=== PATIENT | female | born 1985 | race Caucasian/White ===

== ENCOUNTER 2018-12-08 11:06 | Outpatient (RCR) | payer MEDICAID, SELFPAY ==
--- NOTE | 2018-12-10 10:48 | HP.OTFCE_ITS ---
HP OT Functional Capacity Eval - Task Lift Floor (Occasional 1-33% of Day): 30 Floor (Frequent 34-66% of Day): 15 Floor (Constant 67-100% of Day): Negligible Floor PDL: Light Knee (Occasional 1-33% of Day): 35 Knee (Frequent 34-66% of Day): 18 Knee (Constant 67-100% of Day): 7 Knee PDL: Light-Medium Waist (Occasional 1-33% of Day): 35 Waist (Frequent 34-66% of Day): 18 Waist (Constant 67-100% of Day): 7 Waist PDL: Light-Medium Shoulder (Occasional 1-33% of Day): 30 Shoulder (Frequent 34-66% of Day): 15 Shoulder (Constant 67-100% of Day): negligible Shoulder PDL: Light Overhead (Occasional 1-33% of Day): 30 Overhead (Frequent 34-66% of Day): 15 Overhead (Constant 67-100% of Day): Negligible Overhead PDL: Light Comments: Job Title: Per pt; NURSE RN BSN/Chemical Maker/Laundry: clean, light trash, assist pt with basic self care, transfer pt's, assist with delivering meals, push wheelchairs, push laundry cars, push housekeeping cart, clean 20-30 rooms a day, wash bruce, sweep, mop, clean toilets and mirrors. milling general superintendent trash carry to dumpster. Since pt has been completing light duty only laundry tasks which includes; cook pickled meat laundry barrels, put in washer, dryer and fold. Help hang up clothes, but pt states only one item at a time due to her pain in R side of body. - Work Activity/Posture Bending: Frequent Ability (34-66% of day) Squatting: Frequent Ability (34-66% of day) Kneeling: Occasional Ability (1-33% of day) Reaching out: Frequent Ability (34-66% of day) Reaching up: Frequent Ability (34-66% of day) Sitting: Frequent Ability (34-66% of day) Walking: Frequent Ability (34-66% of day) Standing: Frequent Ability (34-66% of day) - Reference Duration Sedentary Sedentary Light Light Light Medium Medium Medium Heavy Very Heavy Heavy Occasional (0-33% of day) Frequent (34-66% of day) Constant (67-100% of day) 10 # Negligible Negligible 15 # 8 # Negligible 20 # 10# Negli. 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 - Symptoms Symptoms: Pt reports; very sensitive to touch R arm, burning pain R arm from her hand to middle of humerous, R leg hurts to touch, but not as sensitive as R arm, stabbing pain thigh to knee, R foot burning pain. - Pain Pain: Pt states at rest R arm pain 5/10, R leg pain 3/10, R foot pain 5/10 if moves toes a lot goes up to 6/10 pain. Increased pain with all movements or touching of R UE/R LE. - Work History Work History: Pt reports has worked at [employer] for past year. 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 - ADLS ADLS: Pt is a single mother lives with her 4 children to care for, all school aged. Lives in mobile home, ramp to enter no handrails. Bathroom includes tub/shower 2 grab bars, std toilet seat. Drives, works typically 5-6 hrs a week occassionally 8 hrs. Pt states she is extremally fatigued if she has to work a long day. Pt independent with cooking tasks, does grocery shopping but kids carry groceries in house for her. Pt does laundry in house, kids assist with transfering laundry from washer/dryer, she folds and kids carry it and put away. Pt states she cleans the house. Cat to care for at home, pt states cat is indoor/outdoor cat. Sons complete yard work. - Physical Examination ROM: BUE WFL, BLE WFL Strength: R UE 3/5, very painful to touch for MMT therapist had to inform pt she was going to touch her arm so she could mentally prepare for it. L UE 4/5. R LE 4/5. L LE 4+/5 Right Cover Stitch Machine Operator Strength Average: 51.66 Left Cover Stitch Machine Operator Strength Average: 80.00 Right Lateral Pinch Average: 11.00 Left Lateral Pinch Average: 11.66 Right Tripod Pinch Average: 10.00 Left Tripod Pinch Average: 12.00 Comments: Pt demo increased pain of R hand with completion of pinching and grasping tests. Sensation: Pt states occassional numbness and tingling R elbow and shoulder, R calf. No present at time of evaluation. Fine Motor: Pt states she can independently complete fine motor tasks but very painful to complete fine motor skills with R hand. 9 hole peg test. R= 22.7 seconds. L= 20.1 seconds Balance: Pt states she has had falls in past three months, has had 3 falls while at work, 2 times pushing laundry cart when legs gave out and one time she didn't see the stool and fell over it while doing laundry. Pt stated occassionally her legs will just give out on her. - Non Material Handling Activities Bendinx, 10x, 10x fast unsupported Squattinx, 10x, 10x fast using L hand on desk for support inconsistantly during squatting. Kneelinx, 10x able to go down about 1 inch from carpet, unable to touch knee on carpet all the way, 10x fast (modified kneeling not able to go all the way down) using L hand on desk for support, losing balance once able to self correct. Reaching out/up: 1x, 10x, 10x fast all while standing for reaching out to left and right, as well as up. Pt reported 7/10 pain with R hand after movements. Walking: Completed 15 minute walk test w/o seated rest break needed. Standing: Pt able to stand during the evaluation between tasks without difficulty or need to sit down. No s/s of pain with standing. Between lifting tasks pt preferred to stand secondary to pain and nauseated. Sitting: Pt able to sit w/o s/s of pain or discomfort. Pt able to sit for first 20 minutes of evaluation without difficulty or s/s of discomfort. Climbing Stairs: Climbed flight of steps up/down 10 steps using L hand on handrail for support. - Dynamic Occasional Lifting Capacity Floor Lift: 30lb max with 8/10 pain R arm standing/slowly walking around therapist desk due to increased pain R arm shooting up to neck. Knee Lift: 35lb max with 8/10 pain shooting from R hand up to neck and pt stated burning feeling R hand/arm after done with lift. Waist Lift: 35lb max Shoulder Lift: 30lb max 8/10 pain R arm to neck shooting, burning, pt walking around therapists desk after lift trying not to vomit. Pt nauseated from pain. Overhead Lift: 30lb max 8/10 pain R arm to neck, nauseated from pain. Carryinlb max only using L hand to finish carrying box last few inches to chair and used body and L hand only to sit box down secondary to pain R arm 8/10, after finsihed pt stated felt like needed to vomit, walking around room shaking R arm secondary to pain. Comments: Pt states okay to complete one lift, if had to complete repetitive lifting would probably vomit because of the pain. Pt declined to try several lifts in row to simulate laundry tasks for work because of pain and nauseated. Pt gets frustrated because she tries to complete all tasks and has a difficult time completing variety of tasks because of the pain.
== END 2018-12-08 19:00 | disposition home or self-care (01) ==
LOC: OT 11:06
PROVIDERS: Family Provider Family Medicine; PCP Family Medicine; Referring Provider Family Medicine; Visit Provider Family Medicine
DX: I69.30 Unspecified sequelae of cerebral infarction (principal); M79.601 Pain in right arm
CPT/HCPCS: 97165; 97167

== ENCOUNTER 2019-12-25 13:33 | Inpatient (IN) | payer MEDICAID, SELFPAY ==
[2019-12-25] VITALS (14 sets, daily range): BP systolic 118–140; BP diastolic 59–94; PULSE 60–110; RESP 13–20; TEMP 36.6–36.9; O2SAT 97–100; BMI 36.6; BMI 36.2; BMI 36.3
--- NOTE | 2019-12-25 13:40 | ED.RN ---
Per dr. barnes, do not need to call stroke alert.
--- NOTE | 2019-12-25 13:47 | ED.RN ---
rt sided facial droop and numbness from previous stroke.
--- NOTE | 2019-12-25 13:53 | EKG12_ITS ---
Test Reason : NEURO Blood Pressure : / mmHG Vent. Rate : 085 BPM Atrial Rate : 085 BPM P-R Int : 148 ms QRS Dur : 082 ms QT Int : 372 ms P-R-T Axes : 052 -19 060 degrees QTc Int : 442 ms Normal sinus rhythm Normal ECG Confirmed by BRIGIDO GORDON, ALEM ([id number]), city editor MIKY ZHANG ([id number] on 12/28/2019 1:53:36 PM Referred By: YANICK Confirmed By:ALEM FOFANA MD
--- NOTE | 2019-12-25 13:54 | CT_ITS ---
STUDY: CT BRAIN WITHOUT CONTRAST REASON FOR EXAM: Female, 34 years old. Altered mental status. History of stroke. RADIATION DOSAGE (If Supplied By Facility): CTDIvol = ( 44.99 ) mGy, DLP = ( 812.98 ) mGycm TECHNIQUE: Transaxial CT imaging of the brain was performed without administration of intravenous contrast material. Individualized dose optimization techniques were used for this CT. COMPARISON: 01/23/2017 FINDINGS: There is an old left MCA territory infarct with encephalomalacia. There is no acute bleed or infarct. There are normal white matter tracts. The ventricles are normal in configuration. There is no hydrocephalus. There is mucosal hypertrophy in the left maxillary sinus. The visualized paranasal sinuses are otherwise clear. The mastoid air cells are well aerated. There is no skull fracture. CT/Brain/Head without Contrast IMPRESSION: Old left MCA territory infarct with encephalomalacia. No acute bleed or infarct. Left maxillary sinusitis. Electronically Signed: Mohsen Martin, at 14:29 EDT Tel , Service support ,
[2019-12-25 14:07] LABS: Absolute Lymphocyte Count 2.36 X10^3/uL (0.83-4.51); Absolute Neutrophil Count 7.6 X10^3/uL (2.0-7.7); Basophil# 0.07 X10^3/uL; Basophil% 0.6 % (0-1); Eosinophil# 0.25 X10^3/uL; Eosinophils% 2.3 % (0-5); Hematocrit 44.2 % (37-47); Hemoglobin 14.8 g/dL (12.0-15.0); Lymphocyte # 2.36 X10^3/ul (4.0); Lymphocyte % 21.6 % (19-41); Mean Corp Hgb Conc 33.5 g/dL (32-36); Mean Corpuscular Volume 98.4 fL (81-99); Mean Platelet Vol. 8.9 fl (6.2-12.0); Monocyte# 0.55 X10^3/uL; NRBC Flagged by Analyzer 0 % (0-5); Neutrophil # 7.63 X10^3/uL (2.7-7.7); Platelet Count 246 K/mm3 (150-450); RBC Distribution Width CV 12.7 % (11.6-14.6); RBC Distribution Width SD 45.1 fl (35.1-43.9); Red Blood Count 4.49 M/mm3 (4.2-5.4); White Blood Count 10.9 K/mm3 (4.4-11.0)
[2019-12-25 14:12] LABS: Prothrombin Time (Protime)PT. 12.9 SECONDS (11.7-14.9)
[2019-12-25 14:13] LABS: Partial Thromboplast Time 26.5 Seconds (24.1-36.2)
[2019-12-25 14:30] LABS: Anion Gap 4 (5-15); BUN 13 mg/dL (7-18); BUN/Creat Ratio 13.5 RATIO (10-20); Calcium,Total 8.7 mg/dL (8.5-10.1); Chloride 110 mmol/L (98-107); Creatinine, Serum 0.96 mg/dL (0.55-1.02); EST Glomerular Filtration Rate 70 mL/min (>60); Est Glom Filt Rate - Afr Amer 84 mL/min (>60); Estimated Creatinine Clearance 84.67 ml/min; Glucose 116 mg/dL (74-106); Potassium 3.7 mmol/L (3.5-5.1); Sodium Level 140 mmol/L (136-145)
[2019-12-25] MEDS: 0.9% Normal Saline 1,000 ML 100 ML IV ×2 (14:32→18:53)
[2019-12-25 15:16] LABS: Internal QC Validated? YES +Cl - CLEAR BKGD; Pregnancy, Serum, hCG Quali. NEGATIVE Negative
--- NOTE | 2019-12-25 16:46 | ED.VISSUMM ---
- ER Visit Summary Date of Service: 12/25/19 Chief Complaint: Slurred speech History of Present Illness: The patient is a [address] Mcnair. She has a history of a stroke and saw Dr. Kim Dangelo until he moved to a different hospital. She reports that she was fine when she went to bed last night. She woke up at 1030 and had not spoken with anyone until noon. When she spoke with her she found that she had slurred speech. She denies any change in her vision. No vertigo. No numbness or weakness. No difficulty walking. She does report that she is nauseated. Physical Examination: Vitals: Stable. Afebrile. General: Well-nourished and well-developed. Head: Normocephalic atraumatic. Neck: Supple, no lymphadenopathy. No JVD. Nontender. Cardiovascular: Regular rate and rhythm. No murmurs. Respiratory: No respiratory distress. Clear to auscultation bilaterally. Abdominal: Soft, nontender, nondistended, normal bowel sounds. No guarding, rebound, or peritoneal signs. Back: Nontender. Extremities: Nontender, no edema. Skin: Normal color, no rash. Neurologic: Alert and oriented ?3. Cranial nerves II through XII are intact. Normal strength and sensation. NIH scale is 1 for slurred speech. Psych: Normal affect. Test Results: EKG is sinus at 85 no acute changes. Troponin is negative. test is negative. Coags are normal. Chem-7 is remarkable for a chloride of 110 and glucose 116. CBC is normal. Clinical Impression(s) from Imaging Studies Brain CT 12/25/19 13:54 IMPRESSION: Old left MCA territory infarct with encephalomalacia. No acute bleed or infarct. Left maxillary sinusitis. Electronically Signed: Mohsen Wynneelizabethjeanmarie, at 14:29 EDT Tel , Service support , Emergency Department Course and Treatment: Patient woke with the symptoms. We do not know the timeframe. Therefore, she is not a TPA candidate. She is unable to have a CTA to rule out a large vessel occlusion as she has anaphylaxis to iodine. She is resting comfortably. Treatment Plan: Patient was discussed Dr. Sevilla. She will be admitted to the hospital for further evaluation and treatment. Disposition: Admitted in stable condition. Impression: 1. Slurred speech. 2. History of CVA. This note was generated with Mindbl[employer] dictation software. It may contain incorrect words, spelling, and punctuation that were not noted in review of the chart prior to signing
--- NOTE | 2019-12-25 17:20 | PCM.HP.STD ---
<Renard Pride - Last Filed: 12/25/19 17:20> Problem List (1) Expressive aphasia Status: Acute (2) Asthma Status: Chronic (3) Bipolar disorder Status: Chronic (4) History of pulmonary embolism Status: Chronic (5) Tobacco dependence Status: Chronic History of Present Illness Date of Admission: 12/25/19 Chief Complaint: aphasia The patient is a 34 year old F with pmhx of stroke with chronic right sided upper and lower extremity sensory deficits, bipolar discorder, hx PE, tobacco abuse, who presented to the ER with c/o slurred speech. She woke up around 1000 and felt fine, she spoke to someone on the phone around noon and states that her speech was ok then as well. Soon after this she spoke to her and he noticed the slurred speech. She was also having trouble with word finding. She also is having trouble with salivary secretions draining down her throat and making her cough. She has not been taking her aspirin 4 days stating the reason was that she could not find it. She formerly was a patient of Dr. Jane. [] Past Medical History Past Medical History (Chronic Problems): Chronic Problems History of pulmonary embolism (Chronic) Asthma (Chronic) Bipolar disorder (Chronic) Tobacco dependence (Chronic) Allergies cefaclor [From Ceclor] Allergy (Verified 12/25/19 13:35) Anaphylaxis codeine Allergy (Verified 12/25/19 13:35) Anaphylaxis iodine Allergy (Verified 12/25/19 13:35) Anaphylaxis Penicillins Allergy (Verified 12/25/19 13:35) Anaphylaxis red dye Allergy (Verified 12/25/19 13:35) Hives Home Medications: Ambulatory Orders Medication Instructions Recorded Aspirin [Aspirin, Baby] 81 mg PO DAILY@0800 tab.chew 01/25/17 Atorvastatin Calcium [Lipitor] 80 mg PO QHS #30 tablet 01/25/17 Surgical History: no surgical history Psychiatric History: Bipolar ASSOCIATE PROFESSOR OF ECONOMICS History: No pertinent ASSOCIATE PROFESSOR OF ECONOMICS history Lives: With Family Smoking Status: Current every day smoker Tobacco Use: Cigarettes Alcohol: None Drugs: None - *Family History Paternal History Items: No pertinent history Maternal History Items: Diabetes, Heart Disease, Hypertension Review of Systems Constitutional: Denies: Chills, Fever, Weight Change HEENT: Denies: Head Aches, Sinus Congestion, Sinus Drainage Cardiovascular: Denies: Chest Pain, Palpitations Respiratory: Denies: Cough, Shortness of breath at rest, Sputum production Gastrointestinal: Denies: Abdominal Pain, Nausea, Vomiting Genitourinary: Denies: Dysuria Musculoskeletal: Denies: Joint Pain, Joint Tenderness Skin: Denies: Rash, Wounds Neurological: Reports: Slurred speech, - - dysphagia. Denies: Focal weakness, Numbness, Tingling Psychiatric: Denies: Anxiety, Depression, Homicidal Ideations, Suicidal Ideations Hematologic/ Lymphatic: Denies: Easy Bruising, Easy Bleeding VTE Information - Inpt Only VTE Present on Admission: No VTE Mechan Device Prophylaxis: None VTE Pharm Prophylaxis ordered?: Yes - Physical Exam Vitals/I&O's: Vital Signs Temp Pulse Resp BP Pulse Ox 98.2 F 88 18 126/94 H 99 12/25/19 16:05 12/25/19 16:30 12/25/19 16:30 12/25/19 16:30 12/25/19 16:30 Oxygen Flow Rate (L/min) 2 Oxygen Delivery Method Room Air Weight: 247 lb 9.266 oz Body Mass Index (BMI) 36.6 Finger Stick Blood Glucose 130 General: Alert, Oriented x3, Cooperative HEENT: Atraumatic, PERRLA, EOMI, Normocephalic Neck: Supple, No JVD, Negative Carotid Bruits Lungs: Clear to auscultation, Normal air movement Cardiovascular: Regular rate, No murmurs Abdomen: Bowel Sounds Present, Soft, Non Tender Extremities: No edema, Capillary Refill Less than 3 Seconds Skin: No rashes, No breakdown Musculoskeletal: No Tenderness to Palpation of Joints or Extremities Neurological: Facial Droop - left facial droop, Slurred Speech, - - uvular deviation to the right. Psych/Mental Status: Normal Affect, Appropriate, Alert and oriented to time, place, person, mood and affect Laboratory Results 12/25/19 13:49: WBC 10.9, RBC 4.49, Hgb 14.8, Hct 44.2, MCV 98.4, MCH 33.0 H, MCHC 33.5, RDW Std Deviation 45.1 H, RDW Coeff of Adelfo 12.7, Plt Count 246, MPV 8.9, Immature Gran % (Auto) 0.500, Neut % (Auto) 70.0, Lymph % (Auto) 21.6, Caswell % (Auto) 5.0, Eos % (Auto) 2.3, Baso % (Auto) 0.6, Absolute Neuts (auto) 7.6, Absolute Lymphs (auto) 2.36, Nucleated RBC % 0 12/25/19 13:49: PT 12.9, INR 1.0, APTT 26.5 12/25/19 13:49: Sodium 140, Potassium 3.7, Chloride 110 H, Carbon Dioxide 26.0, Anion Gap 4 L, BUN 13, Creatinine 0.96, Estim Creat Clear Calc 84.67, Est GFR (MDRD) Af Amer 84, Est GFR (MDRD) Non-Af 70, BUN/Creatinine Ratio 13.5, Glucose 116 H, Calcium 8.7, Troponin I < 0.015 12/25/19 13:49: Serum , Qual NEGATIVE Current Medications Sodium Chloride () 1,000 mls @ 100 mls/hr IV .Q10H ONE Stop: 12/25/19 23:52 Last Admin: 12/25/19 14:32 Dose: 100 mls/hr Documented by: Assessment/Plan All Active Problems Acute ischemic stroke (Acute) Expressive aphasia (Acute) 1. Slurred speech - suspicious for stroke. also uvular deviation, dysphagia (not clearing mucus secretions, choking) - CT brain negative. Pt off aspirin x 4 days, still smokes. Start aspirin/statin/plavix. PT,OT,ST evals. Trop neg. HCG neg. 2. Prior cva - chronic right upper/lower extremity paraesthesias. as above. 3. Hx Bipolar disorder - not on psychiatric meds 4. Hx PE - not currently on OAC. DVT ppx: lovenox This patient was seen by Renard Pride PA-C under the supervision of Dr. Torrez. <Tete Torrez - Last Filed: 12/25/19 18:53> History of Present Illness The patient is a 34 year old F [] Past Medical History Allergies cefaclor [From Ceclor] Allergy (Verified 12/25/19 13:35) Anaphylaxis codeine Allergy (Verified 12/25/19 13:35) Anaphylaxis iodine Allergy (Verified 12/25/19 13:35) Anaphylaxis Penicillins Allergy (Verified 12/25/19 13:35) Anaphylaxis red dye Allergy (Verified 12/25/19 13:35) Hives - Physical Exam Vitals/I&O's: Vital Signs Temp Pulse Resp BP Pulse Ox 98.5 F 84 20 H 118/70 98 12/25/19 17:50 12/25/19 17:50 12/25/19 17:50 12/25/19 17:50 12/25/19 17:50 Oxygen Flow Rate (L/min) 2 Oxygen Delivery Method Room Air Weight: 111.4 kg Body Mass Index (BMI) 36.2 Finger Stick Blood Glucose 130 Laboratory Results 12/25/19 13:49: WBC 10.9, RBC 4.49, Hgb 14.8, Hct 44.2, MCV 98.4, MCH 33.0 H, MCHC 33.5, RDW Std Deviation 45.1 H, RDW Coeff of Adelfo 12.7, Plt Count 246, MPV 8.9, Immature Gran % (Auto) 0.500, Neut % (Auto) 70.0, Lymph % (Auto) 21.6, Caswell % (Auto) 5.0, Eos % (Auto) 2.3, Baso % (Auto) 0.6, Absolute Neuts (auto) 7.6, Absolute Lymphs (auto) 2.36, Nucleated RBC % 0 12/25/19 13:49: PT 12.9, INR 1.0, APTT 26.5 12/25/19 13:49: Sodium 140, Potassium 3.7, Chloride 110 H, Carbon Dioxide 26.0, Anion Gap 4 L, BUN 13, Creatinine 0.96, Estim Creat Clear Calc 84.67, Est GFR (MDRD) Af Amer 84, Est GFR (MDRD) Non-Af 70, BUN/Creatinine Ratio 13.5, Glucose 116 H, Calcium 8.7, Troponin I < 0.015 12/25/19 13:49: Serum , Qual NEGATIVE 12/25/19 13:49: Hemoglobin A1c 5.1 Current Medications Acetaminophen (Tylenol) 650 mg PO Q6H PRN PRN PRN Reason: Pain Score 1-10/Temp > 100.7 F Al Hydroxide/Mg Hydroxide (Mylanta Ii) 30 ml PO Q6H PRN PRN PRN Reason: Gastric Burning Aspirin (Aspirin, Baby) 81 mg PO DAILY@0800 JAMAL Atorvastatin Calcium (Lipitor) 80 mg PO QHS JAMAL Clopidogrel Bisulfate (Plavix) 75 mg PO DAILY [facility] Heparin Sodium (Porcine) (Heparin Na) 5,000 unit SC Q8 [facility] Sodium Chloride () 1,000 mls @ 100 mls/hr IV .Q10H ONE Stop: 12/25/19 23:52 Last Admin: 12/25/19 14:32 Dose: 100 mls/hr Documented by: Sodium Chloride () 1,000 mls @ 100 mls/hr IV .Q10H [facility] Stop: 12/26/19 13:22 Sodium Chloride () 250 mls @ 15 mls/hr IV .[id number] PRN PRN Reason: Saline Flush Sodium Chloride () 250 mls @ 15 mls/hr IV .[id number] PRN PRN Reason: Additional IVPB Infusion Labetalol HCl (Trandate) 10 - 20 mg IV Q10M PRN PRN PRN Reason: to maintain BP goals Ondansetron HCl (Zofran) 4 mg IV Q8H PRN PRN PRN Reason: NAUSEA/VOMITING Sodium Chloride () 10 - 40 ml IV UD PRN PRN Reason: SALINE FLUSH Assessment/Plan This patient was seen in conjunction with SANDIE Enciso. I have independently interviewed and examined the patient and reviewed pertinent historical, laboratory, and other data. Please refer to SANDIE Enciso note for his patient's presentation, findings, and recommendations. I have reviewed and his note and concur with his documentation 34-year-old with past medical history of CVA, with chronic right sided sensory deficits who has been off aspirin for 4 days comes in with slurred speech ongoing since 12 noon on the day of admission. She woke up at 10:30 in the morning and she was fine. She went over to her ex-'s house around 12 noon and he noticed that she was having slurred speech. This has persisted even at the time of history taking. She denied any sensory loss. Denied any weakness in any of her extremities. She has noticed that she is choking on her saliva when she lies back. She has since been sitting up. She has not followed up with a neurologist in more than [address] Lucinda sprague. Denies any active cough or respiratory symptoms or fever. She has not been in contact with anyone who is sick with the current COVID?19 Physical Exam: Gen:Obese, not pale, not jaundiced, drooling saliva CVS:HS I +II, regular, no murmurs RESP: CTA GI: BS present and normal, soft, nontender, no palpable organs EXT:No edema NUCLEAR PLANT TECHNICAL ADVISOR: CN II-XII intact except for uvula deviation to the right, power is 5/5, normal tone, no sensory deficits ASSESSMENT: 1. TIA/CVA 2. Dysphagia likely secondary to #1 3. Bipolar disorder 4. H/o PE Plan: MRI of the brain, MRA of the head and neck Continue on aspirin and Plavix and statin Lipid profile, HgbA1c PT/OT/ST to evaluate and treat Gentle IV fluids Consider teleneurology if MRI is positive for acute stroke Consider hypercoagulable panel if MRI is positive Consider 2d-ECHO if telemetry is negative for possible explanation for acute CVA OBSV E&M: [id number] Initial observation care L3
--- NOTE | 2019-12-25 17:23 | MRI_ITS ---
STUDY: MRA OF THE HEAD WITHOUT CONTRAST REASON FOR EXAM: Female, 34 years old. slurred speech since 12/25/19 am, prior cva. slurred speech since 12/25/19 am, prior cva TECHNIQUE: 3-D [id number] (TOF) imaging was performed with MIPs. The study was performed unenhanced. COMPARISON: None. FINDINGS: Examination is degraded by motion artifact. Patent right cavernous carotid artery. Patent left cavernous carotid artery. Patent right A1 segments of the anterior cerebral artery. Patent left A1 segments of the anterior cerebral artery. Unremarkable anterior communicating artery (ACOM) region. Normal bilateral A2 segments of the anterior cerebral arteries. Patent right M1 and M2 segments of the middle cerebral arteries, with a unremarkable M1 bifurcation. Patent left M1 and M2 segments of the middle cerebral arteries, with a unremarkable M1 bifurcation. There is non-visualization of the right posterior communicating artery (PCOM). There is non-visualization of the left posterior communicating artery (PCOM). Patent basilar artery with a normal basilar bifurcation. Patent bilateral posterior cerebral arteries. MRI/MRA Head ONLY without Contrast IMPRESSION: No large vessel occlusion. Electronically Signed: Paula Antunez MD at 15:50 EDT Tel , Service support ,
--- NOTE | 2019-12-25 17:23 | MRI_ITS ---
STUDY: MRA NECK WITH AND WITHOUT CONTRAST REASON FOR EXAM: Female, 34 years old. slurred speech since 12/25/19 am, prior cva. slurred speech since 12/25/19 am, prior cva TECHNIQUE: 3-D [id number] (TOF) imaging was performed in an 1.5 T MRI scanner. IV DOTAREM 22CC was administered for the contrast enhanced images. COMPARISON: None. FINDINGS: RIGHT CAROTID ARTERIES: Antegrade flow within the right common carotid artery (CCA). There is mild atherosclerotic plaque formation with minimal narrowing of the right carotid bulb. There is mild atherosclerotic plaque formation of the origin of the right internal carotid artery with less than 50% cross sectional diameter stenosis. Antegrade flow within the visualized cervical portion of the right internal carotid artery. LEFT CAROTID ARTERIES: Antegrade flow within the left common carotid artery (CCA). Antegrade flow within the left common carotid bulb. Antegrade flow within the origin of the left internal carotid (ICA) artery. Antegrade flow within the visualized cervical portion of the left internal carotid artery. VERTEBRAL ARTERIES: Antegrade flow within the bilateral vertebral artery. MRI/MRA Neck WITH and W/O Contrast IMPRESSION: No occlusion or significant stenosis. Mild atherosclerotic plaque. Electronically Signed: Paula Antunez MD at 15:50 EDT Tel , Service support ,
--- NOTE | 2019-12-25 17:23 | MRI_ITS ---
We are attempting to reach an attending provider to discuss findings. An addendum with communication details will be sent when the communication is complete. STUDY: MRI BRAIN WITHOUT CONTRAST REASON FOR EXAM: Female, 34 years old. slurred speech since 12/25/19 am, prior cva TECHNIQUE: Standardized multiplanar fat and water weighted pulse sequences were obtained. COMPARISON: 12/25/2019 CT of the head FINDINGS: There is mild cerebral atrophy with widening of the extra-axial spaces and ventricular dilatation. There are a limited number of small white matter hyperintensities, distributed throughout the deep white matter tracts of the cerebral hemispheres, consistent with mild chronic white matter ischemic changes. There is left MCA territory inflammation gliosis, consistent with prior infarct. There is restricted diffusion on the right frontal lobe with largest area measuring up to 2 cm with probable signal on ADC map, consistent with acute infarction Normal bilateral basal ganglia. Normal thalami. There is no extra-axial fluid accumulation. Normal flow voids within the major intracranial circulation suggesting patency by spin echo criteria. Normal sella turcica, pituitary gland, infundibular stalk, optic chiasm and hypothalamus. Normal tectal plate and pineal gland. Normal midbrain, esperanza and medulla. Normal cerebellum. Normal basal cisterns. MRI/Brain without Contrast IMPRESSION: Acute right frontal infarct. Chronic left MCA infarct. Electronically Signed: Paula Antunez MD at 15:41 EDT Tel , Service support ,
[2019-12-25 17:58] LABS: Hemoglobin A1c 5.1 % (4.2-6.3)
[2019-12-25 18:59] LABS: AST(SGOT) 19 U/L (15-37); Alanine Aminotransfer ALT/SGPT 33 U/L (13-56); Albumin, Serum 3.8 g/dL (3.2-5.0); Alkaline Phosphatase 100 U/L (45-117); Bilirubin, Direct 0.12 mg/dL (0.00-0.30); Globulin 4.2 g/dL (2.2-4.2)
[2019-12-25] MEDS: Heparin Injection (Vial) 5,000 UNIT/ML VIAL 5000 UNIT SC (21:35)
[2019-12-26] VITALS (12 sets, daily range): BP systolic 113–140; BP diastolic 59–86; PULSE 69–85; RESP 14–18; TEMP 36.7–37.3; O2SAT 93–98; BMI 36.2
[2019-12-26] MEDS: 0.9% Normal Saline 1,000 ML 100 ML IV (04:40)
[2019-12-26 05:44] LABS: Absolute Lymphocyte Count 3.53 X10^3/uL (0.83-4.51); Absolute Neutrophil Count 4.7 X10^3/uL (2.0-7.7); Basophil# 0.04 X10^3/uL; Basophil% 0.4 % (0-1); Eosinophil# 0.23 X10^3/uL; Eosinophils% 2.5 % (0-5); Hematocrit 39.1 % (37-47); Hemoglobin 13.2 g/dL (12.0-15.0); Lymphocyte # 3.53 X10^3/ul (4.0); Lymphocyte % 38.4 % (19-41); Mean Corp Hgb Conc 33.8 g/dL (32-36); Mean Corpuscular Hgb 32.4 pg (27.0-32.0); Mean Corpuscular Volume 95.8 fL (81-99); Mean Platelet Vol. 9.2 fl (6.2-12.0); Monocyte# 0.64 X10^3/uL; NRBC Flagged by Analyzer 0 % (0-5); Neutrophil # 4.73 X10^3/uL (2.7-7.7); Neutrophil % 51.4 % (47-70); Platelet Count 208 K/mm3 (150-450); RBC Distribution Width CV 12.6 % (11.6-14.6); RBC Distribution Width SD 43.9 fl (35.1-43.9); Red Blood Count 4.08 M/mm3 (4.2-5.4); White Blood Count 9.2 K/mm3 (4.4-11.0)
[2019-12-26] MEDS: Heparin Injection (Vial) 5,000 UNIT/ML VIAL 5000 UNIT SC ×3 (05:47→21:25)
[2019-12-26 06:11] LABS: ALB/GLOB Ratio 0.9 RATIO (0.9-2.4); AST(SGOT) 19 U/L (15-37); Alanine Aminotransfer ALT/SGPT 25 U/L (13-56); Albumin, Serum 3.1 g/dL (3.2-5.0); Alkaline Phosphatase 84 U/L (45-117); Anion Gap 5 (5-15); BUN 11 mg/dL (7-18); BUN/Creat Ratio 13.5 RATIO (10-20); Calcium,Total 8.5 mg/dL (8.5-10.1); Chloride 116 mmol/L (98-107); Cholesterol 92 mg/dL (200); Creatinine, Serum 0.82 mg/dL (0.55-1.02); EST Glomerular Filtration Rate 84 mL/min (>60); Est Glom Filt Rate - Afr Amer 102 mL/min (>60); Estimated Creatinine Clearance 99.12 ml/min; Globulin 3.6 g/dL (2.2-4.2); Glucose 89 mg/dL (74-106); High Density Lipoprotein 27 mg/dL; Potassium 3.7 mmol/L (3.5-5.1); Protein, Total 6.7 g/dL (6.4-8.2); Sodium Level 144 mmol/L (136-145); Triglycerides 148 mg/dL; Very Low Density Lipoprotein 30 mg/dL (5-40)
--- NOTE | 2019-12-26 11:09 | PN_ITS ---
<Renard Pride - Last Filed: 12/26/19 11:09> Reason for Visit: slurred speech Subjective: Pt feels that her speech and swallowing have not improved. She did do better with swallowing eval today versus yesterday per speech therapy, but still requires modified diet. Prior to this no swallowing issues. No fever/chills. No cough/sob. She has no focal weakness, vision/hearing changes, new parasthesias, or LALA. Vitals/I&O's: Vital Signs Temp Pulse Resp BP Pulse Ox 98.0 F 75 18 124/70 H 93 12/26/19 09:19 12/26/19 09:19 12/26/19 09:19 12/26/19 09:19 12/26/19 09:19 Oxygen Flow Rate (L/min) 2 Oxygen Delivery Method Room Air Weight: 247 lb 5.738 oz Body Mass Index (BMI) 36.2 Finger Stick Blood Glucose 130 Intake and Output for Last 24 Hours 12/24/19 12/25/19 12/26/19 23:59 23:59 23:59 Intake Total 435 / 435 1448.33 / 1448.33 Balance 435 / 435 1448.33 / 1448.33 General: Alert, Oriented x3, Cooperative HEENT: Atraumatic, PERRLA, EOMI, Normocephalic Neck: Supple, No JVD, Negative Carotid Bruits Lungs: Clear to auscultation, Normal air movement Cardiovascular: Regular rate, No murmurs Abdomen: Bowel Sounds Present, Soft, Non Tender, Obese Extremities: No edema, Capillary Refill Less than 3 Seconds Skin: No rashes, No breakdown Musculoskeletal: No Tenderness to Palpation of Joints or Extremities Neurological: Facial Droop - left, Slurred Speech, - - uvula deviated to the Right. Psych/Mental Status: Normal Affect, Appropriate, Alert and oriented to time, place, person, mood and affect Laboratory Results 12/25/19 13:49: WBC 10.9, RBC 4.49, Hgb 14.8, Hct 44.2, MCV 98.4, MCH 33.0 H, MCHC 33.5, RDW Std Deviation 45.1 H, RDW Coeff of Adelfo 12.7, Plt Count 246, MPV 8.9, Immature Gran % (Auto) 0.500, Neut % (Auto) 70.0, Lymph % (Auto) 21.6, [place] % (Auto) 5.0, Eos % (Auto) 2.3, Baso % (Auto) 0.6, Absolute Neuts (auto) 7.6, Absolute Lymphs (auto) 2.36, Nucleated RBC % 0 12/25/19 13:49: PT 12.9, INR 1.0, APTT 26.5 12/25/19 13:49: Sodium 140, Potassium 3.7, Chloride 110 H, Carbon Dioxide 26.0, Anion Gap 4 L, BUN 13, Creatinine 0.96, Estim Creat Clear Calc 84.67, Est GFR (MDRD) Af Amer 84, Est GFR (MDRD) Non-Af 70, BUN/Creatinine Ratio 13.5, Glucose 116 H, Calcium 8.7, Troponin I < 0.015 12/25/19 13:49: Serum , Qual NEGATIVE 12/25/19 13:49: Hemoglobin A1c 5.1 12/25/19 13:49: Total Bilirubin 0.40, Direct Bilirubin 0.12, AST 19, ALT 33, Alkaline Phosphatase 100, Total Protein 8.0, Albumin 3.8, Globulin 4.2 12/26/19 05:29: WBC 9.2, RBC 4.08 L, Hgb 13.2, Hct 39.1, MCV 95.8, MCH 32.4 H, MCHC 33.8, RDW Std Deviation 43.9, RDW Coeff of Adelfo 12.6, Plt Count 208, MPV 9.2, Immature Gran % (Auto) 0.300, Neut % (Auto) 51.4, Lymph % (Auto) 38.4, [place] % (Auto) 7.0, Eos % (Auto) 2.5, Baso % (Auto) 0.4, Absolute Neuts (auto) 4.7, Absolute Lymphs (auto) 3.53, Nucleated RBC % 0 12/26/19 05:29: Sodium 144, Potassium 3.7, Chloride 116 H, Carbon Dioxide 23.0, Anion Gap 5, BUN 11, Creatinine 0.82, Estim Creat Clear Calc 99.12, Est GFR (MDRD) Af Amer 102, Est GFR (MDRD) Non-Af 84, BUN/Creatinine Ratio 13.5, Glucose 89, Calcium 8.5, Total Bilirubin 0.40, AST 19, ALT 25, Alkaline Phosphatase 84, Total Protein 6.7, Albumin 3.1 L, Globulin 3.6, Albumin/Globulin Ratio 0.9, Triglycerides 148, Cholesterol 92, LDL Cholesterol 35, VLDL Cholesterol 30, HDL Cholesterol 27 L Current Medications Acetaminophen (Tylenol) 650 mg PO Q6H PRN PRN PRN Reason: Pain Score 1-10/Temp > 100.7 F Al Hydroxide/Mg Hydroxide (Mylanta Ii) 30 ml PO Q6H PRN PRN PRN Reason: Gastric Burning Aspirin (Aspirin, Baby) 81 mg PO DAILY@0800 [facility] Atorvastatin Calcium (Lipitor) 80 mg PO QHS [facility] Last Admin: 12/25/19 21:37 Dose: Not Given Documented by: Clopidogrel Bisulfate (Plavix) 75 mg PO DAILY [facility] Last Admin: 12/25/19 18:36 Dose: Not Given Documented by: Heparin Sodium (Porcine) (Heparin Na) 5,000 unit SC Q8 [facility] Last Admin: 12/26/19 05:47 Dose: 5,000 unit Documented by: Sodium Chloride () 1,000 mls @ 100 mls/hr IV .Q10H [facility] Stop: 12/26/19 13:22 Last Infusion: 12/26/19 09:22 Dose: 0 mls/hr Documented by: Sodium Chloride () 250 mls @ 15 mls/hr IV .[id number] PRN PRN Reason: Saline Flush Sodium Chloride () 250 mls @ 15 mls/hr IV .[id number] PRN PRN Reason: Additional IVPB Infusion Labetalol HCl (Trandate) 10 - 20 mg IV Q10M PRN PRN PRN Reason: to maintain BP goals Nicotine (Nicoderm Cq (Pbkc)) 21 mg TRANSDERM. DAILY [facility] Last Admin: 12/25/19 19:56 Dose: 21 mg Documented by: Nicotine Polacrilex (Rugby Nicotine (Bkc)) 2 mg PO Q2H PRN PRN PRN Reason: Nicotine Craving Ondansetron HCl (Zofran) 4 mg IV Q8H PRN PRN PRN Reason: NAUSEA/VOMITING Sodium Chloride () 10 - 40 ml IV UD PRN PRN Reason: SALINE FLUSH STROKE Vital Signs/Narrative: Vital Signs Temp Pulse Resp BP Pulse Ox 12/26/19 09:19 98.0 F 75 18 124/70 H 93 Medical Necessity - Tobacco Use Smoking Status: Current every day smoker Tobacco Use: Cigarettes Assessment/Plan All Active Problems Acute ischemic stroke (Acute) Expressive aphasia (Acute) 1. Slurred speech - MRI/A pending. If + for stroke will order neuro eval + Echo. Continue asa/statin. FLP done. A1C 5.1. CT brain no acute change. 2. Dysphagia - continue ST, modified diet. 3. Prior cva - chronic right upper/lower extremity paraesthesias. Pt no longer has a neurologist as o/p as Dr. Jane moved his practice. Will refer to alternative neuro at tx. 4. Hx Bipolar disorder - not on psychiatric meds 5. Hx PE - not currently on OAC. DVT ppx: lovenox This patient was seen by Renard Pride PA-C under the supervision of Dr. Ascencio. <Ramirez Ascencio - Last Filed: 12/26/19 11:36> Subjective: still with trouble speaking. similiar to when she has had CVA previously. Vitals/I&O's: Vital Signs Temp Pulse Resp BP Pulse Ox 36.7 C 75 18 124/70 H 93 12/26/19 09:19 12/26/19 09:19 12/26/19 09:19 12/26/19 09:19 12/26/19 09:19 Oxygen Flow Rate (L/min) 2 Oxygen Delivery Method Room Air Weight: 112.2 kg Body Mass Index (BMI) 36.2 Finger Stick Blood Glucose 130 Intake and Output for Last 24 Hours 12/24/19 12/25/19 12/26/19 23:59 23:59 23:59 Intake Total 435 / 435 1448.33 / 1448.33 Balance 435 / 435 1448.33 / 1448.33 General: Alert, Cooperative HEENT: Atraumatic, Normocephalic Neck: No Nodes, Trachea Midline Lungs: Clear to auscultation, Normal air movement, No rhonchi, No wheeze Cardiovascular: Regular rate, Regular Rhythm, Normal S1, No murmurs Abdomen: Bowel Sounds Present, Soft, Non Tender Extremities: No edema, No Calf Tenderness Neurological: Motor Exam 5/5 strength throughout, Facial Droop, Slurred Speech, - - uvula deviated to the Right. unable to move tongue completely to left. dysarthric Psych/Mental Status: Normal Affect, Appropriate Laboratory Results 12/25/19 13:49: WBC 10.9, RBC 4.49, Hgb 14.8, Hct 44.2, MCV 98.4, MCH 33.0 H, MCHC 33.5, RDW Std Deviation 45.1 H, RDW Coeff of Adelfo 12.7, Plt Count 246, MPV 8.9, Immature Gran % (Auto) 0.500, Neut % (Auto) 70.0, Lymph % (Auto) 21.6, [place] % (Auto) 5.0, Eos % (Auto) 2.3, Baso % (Auto) 0.6, Absolute Neuts (auto) 7.6, Absolute Lymphs (auto) 2.36, Nucleated RBC % 0 12/25/19 13:49: PT 12.9, INR 1.0, APTT 26.5 12/25/19 13:49: Sodium 140, Potassium 3.7, Chloride 110 H, Carbon Dioxide 26.0, Anion Gap 4 L, BUN 13, Creatinine 0.96, Estim Creat Clear Calc 84.67, Est GFR (MDRD) Af Amer 84, Est GFR (MDRD) Non-Af 70, BUN/Creatinine Ratio 13.5, Glucose 116 H, Calcium 8.7, Troponin I < 0.015 12/25/19 13:49: Serum , Qual NEGATIVE 12/25/19 13:49: Hemoglobin A1c 5.1 12/25/19 13:49: Total Bilirubin 0.40, Direct Bilirubin 0.12, AST 19, ALT 33, Alkaline Phosphatase 100, Total Protein 8.0, Albumin 3.8, Globulin 4.2 12/26/19 05:29: WBC 9.2, RBC 4.08 L, Hgb 13.2, Hct 39.1, MCV 95.8, MCH 32.4 H, MCHC 33.8, RDW Std Deviation 43.9, RDW Coeff of Adelfo 12.6, Plt Count 208, MPV 9.2, Immature Gran % (Auto) 0.300, Neut % (Auto) 51.4, Lymph % (Auto) 38.4, [place] % (Auto) 7.0, Eos % (Auto) 2.5, Baso % (Auto) 0.4, Absolute Neuts (auto) 4.7, Absolute Lymphs (auto) 3.53, Nucleated RBC % 0 12/26/19 05:29: Sodium 144, Potassium 3.7, Chloride 116 H, Carbon Dioxide 23.0, Anion Gap 5, BUN 11, Creatinine 0.82, Estim Creat Clear Calc 99.12, Est GFR (MDRD) Af Amer 102, Est GFR (MDRD) Non-Af 84, BUN/Creatinine Ratio 13.5, Glucose 89, Calcium 8.5, Total Bilirubin 0.40, AST 19, ALT 25, Alkaline Phosphatase 84, Total Protein 6.7, Albumin 3.1 L, Globulin 3.6, Albumin/Globulin Ratio 0.9, Triglycerides 148, Cholesterol 92, LDL Cholesterol 35, VLDL Cholesterol 30, HDL Cholesterol 27 L Current Medications Acetaminophen (Tylenol) 650 mg PO Q6H PRN PRN PRN Reason: Pain Score 1-10/Temp > 100.7 F Al Hydroxide/Mg Hydroxide (Mylanta Ii) 30 ml PO Q6H PRN PRN PRN Reason: Gastric Burning Aspirin (Aspirin, Baby) 81 mg PO DAILY@0800 [facility] Last Admin: 12/26/19 11:18 Dose: 81 mg Documented by: Atorvastatin Calcium (Lipitor) 80 mg PO QHS [facility] Last Admin: 12/25/19 21:37 Dose: Not Given Documented by: Clopidogrel Bisulfate (Plavix) 75 mg PO DAILY [facility] Last Admin: 12/26/19 11:18 Dose: 75 mg Documented by: Heparin Sodium (Porcine) (Heparin Na) 5,000 unit SC Q8 [facility] Last Admin: 12/26/19 05:47 Dose: 5,000 unit Documented by: Sodium Chloride () 1,000 mls @ 100 mls/hr IV .Q10H [facility] Stop: 12/26/19 13:22 Last Infusion: 12/26/19 09:22 Dose: 0 mls/hr Documented by: Sodium Chloride () 250 mls @ 15 mls/hr IV .[id number] PRN PRN Reason: Saline Flush Sodium Chloride () 250 mls @ 15 mls/hr IV .[id number] PRN PRN Reason: Additional IVPB Infusion Labetalol HCl (Trandate) 10 - 20 mg IV Q10M PRN PRN PRN Reason: to maintain BP goals Nicotine (Nicoderm Cq (Pbkc)) 21 mg TRANSDERM. DAILY [facility] Last Admin: 12/26/19 11:18 Dose: 21 mg Documented by: Nicotine Polacrilex (Rugby Nicotine (Bkc)) 2 mg PO Q2H PRN PRN PRN Reason: Nicotine Craving Ondansetron HCl (Zofran) 4 mg IV Q8H PRN PRN PRN Reason: NAUSEA/VOMITING Sodium Chloride () 10 - 40 ml IV UD PRN PRN Reason: SALINE FLUSH STROKE Vital Signs/Narrative: Vital Signs Temp Pulse Resp BP Pulse Ox 12/26/19 09:19 36.7 C 75 18 124/70 H 93 Assessment/Plan Patient seen and examined independently. Data reviewed. I agree with the above note by the physician assistant media planner. 1. Dysarthria * Concerned this could be another stroke given the patient's history. Patient is not doing well with speech therapy so does raise concern for stroke much higher than something such as conversion disorder. MRI completed but the results are still pending at this time. Will await the results of the MRI and if stroke is confirmed then will need to proceed with an echocardiogram and consult the tele-neurologist. * Continue with aspirin, clopidogrel as well as high intensity statin 2. Dysphasia: * Evaluated by speech therapy who is recommending pur?ed with nectar thickened liquids. Additionally recommending small bites, small sips and head of bed at 90 degrees when she eats. Speech therapy to determine if the patient may require a cookie swallow or not. Irregardless of what the MRI shows will need to have speech therapy for evaluate the patient prior to discharge to have the patient on a safe diet. Inpatient E&M: [id number] [facility] L3
[2019-12-26] MEDS: Aspirin 81 MG TAB.CHEW PO (11:18)
[2019-12-26] MEDS: Clopidogrel Bisulfate 75 MG Tablet PO (11:18)
[2019-12-26] MEDS: Atorvastatin Calcium 80 MG Tablet PO (21:25)
[2019-12-27] VITALS (7 sets, daily range): BP systolic 105–122; BP diastolic 70–85; PULSE 64–88; RESP 12–18; TEMP 36.6–37; O2SAT 94–97; BMI 36.2
--- NOTE | 2019-12-27 05:55 | ECHOD_ITS ---
Reason For Study: CVA Procedure This was a 2D Doppler, Color Flow transthoracic echocardiogram. No IV for Definity. Exam performed portable in patient room. Left Ventricle Normal size and thickness. Left ventricular systolic function is normal. The estimated ejection fraction is 55 %. No regional wall motion abnormalities noted. Right Ventricle Normal RV size. Normal systolic function. Atria Normal left atrium. Normal right atrium. Mitral Valve Mild focal mitral valve thickening. Tricuspid Valve Normal tricuspid valve. Aortic Valve Normal aortic valve. Trisinus/trileaflet aortic valve. Pulmonic Valve Normal pulmonic valve. Great Vessels Normal aortic root. The pulmonary artery is normal size. Normal inferior vena cava. Pericardium/Pleural No pericardial effusion. Medication Previously negative bubble on KEEGAN 01/2017. MMode/2D Measurements & Calculations LVIDd: 5.4 cm IVSd: 0.75 cm Ao root diam: 2.7 cm LVIDs: 3.7 cm LVPWd: 0.83 cm RVDd: 2.8 cm FS: 31.9 % LAV(MOD-bp): 48.3 ml LA A4 area: 15.7 cm2 LA dimension(2D): 4.0 cm LAV(MOD-bp) Indexed: 21.4 ml/m2 LAV(MOD-sp2): 55.7 ml LAV(MOD-sp4): 40.7 ml RA A4 area: 9.5 cm2 Time Measurements MV dec time: 0.21 sec Doppler Measurements & Calculations MV E max jc: 86.4 cm/sec Lat Peak E' Jc: 14.1 cm/sec Med Peak E' Jc: 9.5 cm/sec MV A max jc: 77.1 cm/sec E/E' lat: 6.1 E/E' med: 9.1 MV E/A: 1.1 Ao V2 max: 108.8 cm/sec LV V1 max: 101.0 cm/sec PA V2 max: 100.9 cm/sec Ao max P.7 mmHg LV V1 max P.1 mmHg Interpretation Summary Normal size and thickness. Left ventricular systolic function is normal. The estimated ejection fraction is 55 %. Mild focal mitral valve thickening. Ordering Physician: Renard Pride Referring Physician: DARYN CABEZAS Performed By: Jelena Ross, MALIHACS, RVT
[2019-12-27] MEDS: Heparin Injection (Vial) 5,000 UNIT/ML VIAL 5000 UNIT SC (06:53)
[2019-12-27] MEDS: Aspirin 81 MG TAB.CHEW PO (08:56)
[2019-12-27] MEDS: Clopidogrel Bisulfate 75 MG Tablet PO (08:57)
--- NOTE | 2019-12-27 10:31 | CASEMGMT ---
Assessment- SW completed assessment with patient at bedside Living situation- Patient lives with her children in a mobile home with 4 entry steps PCP: Dr Jovany Mcnair Specialists: None currently Pharmacy: [facility] in [place] DME: None ADL's/IADL's: Patient is independent in all activities. She has four children she cares for at home Past SNF/rehab: None Past HH: None LW: No POA: No Plan: Patient plans on going home at discharge. She anticipates no problems. She is willing to do outpatient Speech therapy. She went to [facility] before and is fine with going there again. No other concerns. RN CM made aware of outpatient therapy. Kendra VASQUEZ CHARGING MACHINE OPERATOR
--- NOTE | 2019-12-27 10:37 | CASEMGMT ---
SW completed a PHQ 9 with patient as she had a Stroke. She scored a 1 which indicates minimal depression. Kendra VASQUEZ MSW
--- NOTE | 2019-12-27 10:59 | PCM.DC ---
You will use the following diet at home:: Cardiac Your food should be the consistency of: Puree Your liquids should be the consistency of: [place] Thick Discharge Activity: - - no smoking Allergies/Adverse Reactions: Allergies cefaclor [From Ceclor] Allergy (Verified 12/25/19 13:35) Anaphylaxis codeine Allergy (Verified 12/25/19 13:35) Anaphylaxis iodine Allergy (Verified 12/25/19 13:35) Anaphylaxis Penicillins Allergy (Verified 12/25/19 13:35) Anaphylaxis red dye Allergy (Verified 12/25/19 13:35) Hives Medications to take at Discharge Aspirin [Aspirin, Baby] 81 mg PO DAILY@0800 tab.chew 01/25/17 Atorvastatin Calcium [Lipitor] 80 mg PO QHS #30 tablet 01/25/17 Clopidogrel Bisulfate [Plavix] 75 mg PO DAILY #30 tab 12/27/19 The following prescriptions were given: Clopidogrel Bisulfate [Plavix] 75 mg PO DAILY #30 tab Transmission Status: Received by JERE WOOD[address] Primary Care Physician: Jovany Mcnair DO [Primary Care Provider] - Please follow up with your Primary Care Physician in: 1-2 weeks Test Results: Test results from this visit will be discussed in further detail at your follow-up appointment, if applicable. Please Follow Up With: Nicole Clemons MD - Hematology When: 2 weeks Please Follow Up With: Jane Nicole - neurology, or neurology of your choice When: 2 weeks Please Follow Up With: Alberto Ribera MD - KEEGAN, Holter monitor When: 4 weeks Proposed Discharge Date: 12/27/19
--- NOTE | 2019-12-27 11:07 | CASEMGMT ---
Per therapy, pt needs to be set up with OP speech therapy at discharge. Pt states has been to [facility] in the past and is agreeable to same at this time. Order for OP speech therapy faxed to [facility] and original to pt at this time. Pt voices no further questions/concerns/needs at this time. Nemo VILA CM
--- NOTE | 2019-12-27 13:11 | PCM.DC.SUM ---
Discharge Date and Diagnosis Date of Admission: 12/25/19 Date of Discharge: 12/27/19 - Primary Discharge Diagnosis Acute right frontal infarct Prior infarcts, suspected embolic Prior PE Obesity Bipolar disorder Nicotine abuse - Secondary Discharge Diagnosis Chronic Problems History of pulmonary embolism (Chronic) Asthma (Chronic) Bipolar disorder (Chronic) Tobacco dependence (Chronic) Hospital Course and Treatment Imaging Results: IMAGIN12/27/19 05:55 Echo Complete [ECHO] AM (NON MEDS) Interpretation Summary Normal size and thickness. Left ventricular systolic function is normal. The estimated ejection fraction is 55 %. Mild focal mitral valve thickening. CT/Brain/Head without Contrast IMPRESSION: Old left MCA territory infarct with encephalomalacia. No acute bleed or infarct. Left maxillary sinusitis. MRI/MRA Head ONLY without Contrast IMPRESSION: No large vessel occlusion. MRI/MRA Neck WITH and W/O Contrast IMPRESSION: No occlusion or significant stenosis. Mild atherosclerotic plaque. Consults: Teleneuro - SOC Operations: None Procedures: 2-D Echocardiogram Summary of Care Provided: Hospital course: The patient is a 34 year old F with pmhx of prior stroke with residual right sided parasthesias, obesity, bipolar disorder, PE, nicotine abuse who presented to the ER with new slurred speech and swallowing difficulty that began the day of presentation. In the ER there was concern that she woke up with these symptoms and therefore she was out of the TPA window. CT brain was negative. She had been off of her baby aspirin for 4 days. She was admitted to the PCU and placed on tele. She had no events on tele. She underwent an MRI of the brain which showed an acute frontal infarct. MRA head/neck were negative. She had significant difficulty swallowing and was placed on a modified diet with pureed textrues and nectar thickened liquids. Tele neuro was consulted. They noted additional areas in the brain with prior strokes likely of embolic origin. They recommended continuing aspirin, plavix, and statin. They also recommended obtaining a KEEGAN as an outpatient as she may have an underlying cardiac embolic origin, and recommended a hypercoag panel as she may have an underlying clotting disorder. They also recommended a holter monitor as an outpatient, and follow up with cardiology, hematology, and neurology. I have arranged for her to obtain the 48 hour monitor prior to leaving. She will need a KEEGAN as an o/p and I have arranged for her to follow up with Dr. Ribera in 1 month who will arrange for the KEEGAN. I have advised that she follow up with neuro at with Dr. Nicole in 2 weeks, who was specifically recommended by [facility] neuro, and with Dr. Clemons for hematology in 2 weeks (hypercoag panel was drawn and is pending: f/u as o/p for results). She should also follow up with her PCP in 1-2 weeks. She was discharged home in stable condition. She will need to continue outpatient speech therapy and diet modifications for dysphagia. This patient was seen by Renard Pride PA-C under the supervision of Doctor Kenneth. [] - Physical Exam Vitals/I&O's: Vital Signs Temp Pulse Resp BP Pulse Ox 97.9 F 70 18 122/70 H 97 12/27/19 08:50 12/27/19 08:50 12/27/19 08:50 12/27/19 08:50 12/27/19 08:50 Oxygen Flow Rate (L/min) 2 Oxygen Delivery Method Room Air Weight: 245 lb 13.047 oz Body Mass Index (BMI) 36.2 Finger Stick Blood Glucose 130 Intake and Output for Last 24 Hours 12/25/19 12/26/19 12/27/19 23:59 23:59 23:59 Intake Total 435 / 435 2448.33 / 2448.33 670 / 670 Balance 435 / 435 2448.33 / 2448.33 670 / 670 General: Alert, Oriented x3, Cooperative HEENT: Atraumatic, PERRLA, EOMI, Normocephalic Neck: Supple, No JVD, Negative Carotid Bruits Lungs: Clear to auscultation, Normal air movement Cardiovascular: Regular rate, No murmurs Abdomen: Bowel Sounds Present, Soft, Non Tender Extremities: No edema, Capillary Refill Less than 3 Seconds Skin: No rashes, No breakdown Musculoskeletal: No Tenderness to Palpation of Joints or Extremities Neurological: Facial Droop - left facial droop, Slurred Speech, - - uvula deviated to right. Psych/Mental Status: Normal Affect, Appropriate, Alert and oriented to time, place, person, mood and affect Current Medications Acetaminophen (Tylenol) 650 mg PO Q6H PRN PRN PRN Reason: Pain Score 1-10/Temp > 100.7 F Al Hydroxide/Mg Hydroxide (Mylanta Ii) 30 ml PO Q6H PRN PRN PRN Reason: Gastric Burning Aspirin (Aspirin, Baby) 81 mg PO DAILY@0800 [facility] Last Admin: 12/27/19 08:56 Dose: 81 mg Documented by: Atorvastatin Calcium (Lipitor) 80 mg PO QHS [facility] Last Admin: 12/26/19 21:25 Dose: 80 mg Documented by: Clopidogrel Bisulfate (Plavix) 75 mg PO DAILY [facility] Last Admin: 12/27/19 08:57 Dose: 75 mg Documented by: Heparin Sodium (Porcine) (Heparin Na) 5,000 unit SC Q8 [facility] Last Admin: 12/27/19 06:53 Dose: 5,000 unit Documented by: Sodium Chloride () 250 mls @ 15 mls/hr IV .[id number] PRN PRN Reason: Saline Flush Sodium Chloride () 250 mls @ 15 mls/hr IV .[id number] PRN PRN Reason: Additional IVPB Infusion Labetalol HCl (Trandate) 10 - 20 mg IV Q10M PRN PRN PRN Reason: to maintain BP goals Nicotine (Nicoderm Cq (Pbkc)) 21 mg TRANSDERM. DAILY [facility] Last Admin: 12/27/19 08:56 Dose: 21 mg Documented by: Nicotine Polacrilex ([place]ugby Nicotine (Bkc)) 2 mg PO Q2H PRN PRN PRN Reason: Nicotine Craving Ondansetron HCl (Zofran) 4 mg IV Q8H PRN PRN PRN Reason: NAUSEA/VOMITING Sodium Chloride () 10 - 40 ml IV UD PRN PRN Reason: SALINE FLUSH Discharge Diet: Low fat/ Low Cholesterol, 2000 mg Sodium Diet, - - pureed texture, nectar thick liquids Discharge Activity: - - no smoking Home Medications: Medications to take at Discharge Aspirin [Aspirin, Baby] 81 mg PO DAILY@0800 tab.chew 01/25/17 Atorvastatin Calcium [Lipitor] 80 mg PO QHS #30 tablet 01/25/17 Clopidogrel Bisulfate [Plavix] 75 mg PO DAILY #30 tab 12/27/19 Following Prescrptions Were Given to Patient: Clopidogrel Bisulfate [Plavix] 75 mg PO DAILY #30 tab Transmission Status: Received by [facility] Primary Care Physician: Jovany Mcnair DO [Primary Care Provider] - Please follow up with your Primary Care Physician in: 1-2 weeks Please Follow Up With: Nicole Clemons MD - Hematology When: 2 weeks Please Follow Up With: Jane Nicole - neurology, or neurology of your choice When: 2 weeks Please Follow Up With: Alberto Ribera MD - KEEGAN, Holter monitor When: 4 weeks Disposition: Home Minutes spent on discharge:: 40 Patient Condition:: Stable Medical Necessity - Tobacco Use Smoking Status: Current every day smoker Tobacco Use: Cigarettes Meaningful Use Info Meaningful Use Diagnoses (Choose all that apply): Ischemic CVA - CVA Therapy Assessed for PT,OT and/or ST?: Yes - Ischemic Stroke Antithrombotic order at d/c?: Yes Dx of Atrial fib/flutter?: No Statins at discharge?: Yes Primary Dx Acute Ischemic CVA?: Yes IV tPA ordered during stay?: No Reason IV t-PA not ordered: Procedure not Indicated
[2020-01-03 12:07] LABS: Protein C Antigen 107 % (60-150); Protein C, Functional 118 % (73-180)
[2020-01-04 12:45] LABS: Anti-Cardiolipin Ab, IgG, Qn < 9 GPL U/mL (0-14); Anti-Cardiolipin Ab, IgM, Qn < 9 MPL U/mL (0-12); Anti-Thrombin 3 AG, Immunol 97 % (72-124); Antithrombin 3 Function 105 % (75-135); Beta-2-Glycoprotein I IgA <9 (0-25); Beta-2-Glycoprotein I IgG <9 (0-20); Beta-2-Glycoprotein I IgM <9 (0-32)
== END 2019-12-27 13:55 | disposition home or self-care (01) | DRG 45 ==
LOC: ED 14:19 → PCU 16:11
PROVIDERS: Physician Assistant; Admitting Provider Internal Medicine; Emergency Provider Emergency Medicine; PCP Family Medicine; Visit Provider Internal Medicine
DX: I63.9 Cerebral infarction, unspecified (principal); R47.81 Slurred speech; R13.10 Dysphagia, unspecified; R47.01 Aphasia; I69.351 Hemiplegia and hemiparesis following cerebral infarction affecting right dominant side; F31.9 Bipolar disorder, unspecified; J45.909 Unspecified asthma, uncomplicated; F17.210 Nicotine dependence, cigarettes, uncomplicated; E66.9 Obesity, unspecified; Z68.36 Body mass index [BMI] 36.0-36.9, adult; Z86.711 Personal history of pulmonary embolism; Z79.82 Long term (current) use of aspirin
CPT/HCPCS: 36415; 70450; 70544; 70549; 70551; 80048; 80053; 80061; 80076; 81240; 81241; 83036; 84484; 84703; 85025; 85300; 85301; 85302; 85303; 85610; 85730; 86146; 86147; 92610; 93005; 93225; 93226; 93306; 94762; 97162; 97165; 99285; 99406; A9575; J7030; Q9957; A4216

== ENCOUNTER → 2019-12-27 11:36 | Outpatient (CLI) | payer MEDICAID, SELFPAY ==
[2019-12-27 00:38] VITALS: BMI 36.2
== END ==
PROVIDERS: PCP Family Medicine; Visit Provider Internal Medicine
DX: Z86.73 Personal history of transient ischemic attack (TIA), and cerebral infarction without residual deficits (principal)
CPT/HCPCS: 93225; 93226

== ENCOUNTER → 2020-01-13 12:31 | Outpatient (CLI) | payer MEDICAID, SELFPAY ==
[2019-12-27 13:38] VITALS: BMI 36.2
[2020-01-11 10:17] VITALS: BMI 35.2
--- NOTE | 2020-01-13 13:42 | SP.MBSS_ITS ---
PRIMARY / SECONDARY DIAGNOSIS: dysphagia (R13.12) REFERRING PHYSICIAN: Dr. Jovany Mcnair CURRENT DIET: mechanical soft textures/nectar thick liquids DENTITION: missing upper teeth and lower molars MENTAL STATUS: WF for assessment RESPIRATORY STATUS: O2 via room air PREVIOUS MODIFIED BARIUM SWALLOW STUDY: N/A REASON FOR REFERRAL: Dysphagia secondary to recent CVA MEDICAL HISTORY: The patient is a 34/F with past medical history of CVA, expressive aphasia, asthma, bipolar, pulmonary embolism, and tobacco dependence. STUDY FINDINGS: Patient participated in a Modified Barium Swallow (MBS) study on 01/13/2020. This study was recorded in the lateral view and images were sent to PACs for storage. The following consistencies were presented to this patient for analysis of oropharyngeal swallow function: thin liquid, nectar thick liquids, pudding, and a regular textured, Idalmis Doone cookie. Results of the MBS are as follows: PENETRATION / ASPIRATION SCALE (VACA): 1 = does not enter airway 2 = enters airway/above vocal folds/ejected 3 = enters airway/above vocal folds/not ejected 4 = enters airway/contacts vocal folds/ejected 5 = enters airway/contacts vocal folds/not ejected 6 = enters airway/below vocal folds/ejected 7 = enters airway/below vocal folds/not ejected despite effort 8 = enters airway/below vocal folds/no effort PENETRATION / ASPIRATION SCALE (SCORE): 1) Thin liquids via teaspoon: 1 2) Thin liquids via teaspoon: 1 3) Thin liquids via small single sip from cup: 1 4) Thin liquids via large single sip from cup: 1 5) Thin liquids via sequential sips from cup: 1 6) [place] thick liquids via single small sip from cup: 1 7) [place] thick liquids via large single sip from cup: 1 8) Puddin 9) Cookie: 1 10) Thin liquids via small single sip from straw: 2 11) Thin liquids via large single sip from straw:2 IMPRESSION: Patient presents with mild oropharyngeal dysphagia (R13.12) ORAL PHASE CHARACTERIZED BY: LABIAL SEAL: no labial escape TONGUE CONTROL DURING BOLUS MANIPULATION:posterior escape of less than half of bolus BOLUS PREPARATION / MASTICATION:slow prolonged chewing/mashing with complete recollection BOLUS TRANSPORT / LINGUAL MOTION: delayed initiation of tongue motion ORAL RESIDUE:residue collection on oral structures PHARYNGEAL PHASE CHARACTERIZED BY: INITIATION OF PHARYNGEAL SWALLOW: bolus head in pyriforms at first hyoid excursion SOFT PALATE ELEVATION:no bolus between soft palate and pharyngeal wall LARYNGEAL ELEVATION:partial superior movement of thyroid cartilage/partial approximation of arytenoids cartilage to epiglottic petiole ANTERIOR HYOID EXCURSION: trace anterior movement EPIGLOTTIC MOVEMENT: complete epiglottic inversion LARYNGEAL VESTIBULE CLOSURE AT HEIGHT OF SWALLOW: incomplete laryngeal vestibule closure with narrow column of air/contrast in laryngeal vestibule PHARYNGEAL STRIPPING WAVE:pharyngeal stripping wave present / complete PHARYNGOESOPHAGEAL SEGMENT OPENING:partial distension and partial duration; partial obstruction of flow TONGUE BASE RETRACTION:no contrast between tongue base and posterior pharyngeal wall PHARYNGEAL RESIDUE:trace residue within or on pharyngeal structures ESOPHAGEAL PHASE CHARACTERIZED BY: ESOPHAGEAL BOLUS CLEARANCE IN THE UPRIGHT POSITION: could not view DIET TEXTURE RECOMMENDATIONS: Will recommend a mechanical soft textured, thin liquid diet. COMPENSATORY STRATEGIES RECOMMENDED: Will recommend reduced bolus volume, reduced rate of intake, alternate bites with sips to help clear residue, avoid straws, seated upright at 90 degrees during PO intake, and remain upright for 30-60 minutes post meal. INTERPRETATION OF RESULTS: Patient presents with mild oropharyngeal dysphagia (R13.12) secondary to recent CVA. Oral phase primarily marked by prolonged mastication with solid Idalmis Doone cookie resulting in mild-moderate oral residue. Pharyngeal phase primarily marked by delayed pharyngeal swallow onset timing resulting in suboptimal bolus location upon swallow onset and reduced closure of the airway. Minimal anterior hyoid excursion was noted. Smaller bolus sizes were more easily tolerated. Trace penetration noted with thin liquids via straw, however liquid was ejected. No aspiration found throughout this evaluation on this date and at this current time. RECOMMENDATIONS: Patient and patients sister report preparing food at home to mechanical soft texture recently and tolerating well. Given today's evaluation, would recommend to continue with mechanical soft textures. Will recommend upgrade to thin liquids following assessment from the patients current clinical speech-language pathologist in outpatient location in order to be able to review results with the patient and provide education regarding compensatory strategies. Patient requires continued intensive skilled speech-language intervention targeting diet texture management, training and implementation of recommended compensatory strategies, training and implementation of recommended oropharyngeal strengthening exercises to facilitate improved swallow function, and patient and caregiver training targeting meal preparation. ADDITIONAL COMMENTS/RECOMMENDATIONS: Results and recommendations were discussed with the patient and patients sister immediately following MBS completion, with the patient and sister verbalizing understanding and agreement with all recommendations and education provided. IMAGE COUNT: [id number] Krysta Briceno M.A., CCC-CAMPAIGN DIRECTOR Speech Language Pathologist [address] [address] [email or web address] [phone]
== END ==
PROVIDERS: PCP Family Medicine; Referring Provider Family Medicine; Visit Provider Family Medicine
DX: R13.10 Dysphagia, unspecified (principal); Z86.73 Personal history of transient ischemic attack (TIA), and cerebral infarction without residual deficits
CPT/HCPCS: 76000; 92611

== ENCOUNTER 2020-01-23 19:50 | Emergency (ER) | payer MEDICAID, SELFPAY ==
[2020-01-11 10:17] VITALS: BMI 35.2
[2020-01-23 19:51] VITALS: BP 138/90; PULSE 105; RESP 18; TEMP 36.8; O2SAT 96; BMI 75.5
--- NOTE | 2020-01-23 20:09 | EKG12_ITS ---
Test Reason : GEN ILL Blood Pressure : / mmHG Vent. Rate : 085 BPM Atrial Rate : 085 BPM P-R Int : 146 ms QRS Dur : 086 ms QT Int : 380 ms P-R-T Axes : 058 -14 065 degrees QTc Int : 452 ms Poor data quality, interpretation may be adversely affected Normal sinus rhythm Normal ECG Confirmed by BRIGIDO GORDON, ALEM ([id number]), restaurant expeditor MIKY ZHANG ([id number]) on 01/25/2020 11:18:19 AM Referred By: SUSANNA Confirmed By:ALEM FOFANA MD
--- NOTE | 2020-01-23 20:09 | CT_ITS ---
STUDY: CT BRAIN WITHOUT CONTRAST REASON FOR EXAM: Female, 34 years old. Altered mental status. History of prior stroke. RADIATION DOSAGE (If Supplied By Facility): CTDIvol = ( 44.99 ) mGy, DLP = ( 796.11 ) mGycm TECHNIQUE: Transaxial CT imaging of the brain was performed without administration of intravenous contrast material. Individualized dose optimization techniques were used for this CT. COMPARISON: CT dated 12/25/2019 FINDINGS: There is a stable old left MCA territory infarct with encephalomalacia. There is no acute bleed or infarct. There are normal white matter tracts. The ventricles are normal in configuration. There is no hydrocephalus. There is stable mucosal hypertrophy in the left maxillary sinus. The visualized paranasal sinuses are otherwise clear. The mastoid air cells are well aerated. There is no skull fracture. CT/Brain/Head without Contrast IMPRESSION: Stable old left MCA territory infarct with encephalomalacia. No acute intracranial abnormality. Stable left maxillary sinusitis. Electronically Signed: Mohsen Martin, at 21:51 EDT Tel , Service support ,
[2020-01-23 20:38] LABS: Mucous, Urine 0 SEEN /hpf (<or=2+)
[2020-01-23 20:42] LABS: Absolute Lymphocyte Count 2.36 X10^3/uL (0.83-4.51); Absolute Neutrophil Count 4.5 X10^3/uL (2.0-7.7); Basophil# 0.08 X10^3/uL; Eosinophil# 0.31 X10^3/uL; Hematocrit 41.2 % (37-47); Hemoglobin 13.9 g/dL (12.0-15.0); Lymphocyte # 2.36 X10^3/ul (4.0); Lymphocyte % 30.2 % (19-41); Mean Corp Hgb Conc 33.7 g/dL (32-36); Mean Corpuscular Hgb 33.1 pg (27.0-32.0); Mean Corpuscular Volume 98.1 fL (81-99); Mean Platelet Vol. 9.6 fl (6.2-12.0); Monocyte# 0.53 X10^3/uL; Monocyte% 6.8 % (0-10); NRBC Flagged by Analyzer 0 % (0-5); Neutrophil # 4.51 X10^3/uL (2.7-7.7); Neutrophil % 57.7 % (47-70); Platelet Count 225 K/mm3 (150-450); RBC Distribution Width CV 12.1 % (11.6-14.6); RBC Distribution Width SD 43.1 fl (35.1-43.9); White Blood Count 7.8 K/mm3 (4.4-11.0)
[2020-01-23 20:43] LABS: Color, Urine Yellow (Yellow); Glucose, Dipstick Normal (Normal); Ketone-Dipstick 5 mg/dl (Negative); Leukocyte Esterase-Dipstick 500 /ul (Negative); Nitrite-Dipstick Negative (Negative); Occult Blood-Urine 250 /ul (Negative); Protein-Dipstick 30 mg/dl (Negative); Urine Bilirubin Dipstick Negative (Negative); Urine Clarity Cloudy (Clear); Urine Urobilinogen 1 mg/dl (Normal)
[2020-01-23 20:59] LABS: Internal QC Validated? YES +Cl - CLEAR BKGD; Pregnancy, Serum, hCG Quali. NEGATIVE Negative
[2020-01-23 21:02] LABS: AST(SGOT) 25 U/L (15-37); Alanine Aminotransfer ALT/SGPT 41 U/L (13-56); Albumin, Serum 3.7 g/dL (3.2-5.0); Alkaline Phosphatase 85 U/L (45-117); Anion Gap 4 (5-15); BUN 9 mg/dL (7-18); BUN/Creat Ratio 9.5 RATIO (10-20); Calcium,Total 8.4 mg/dL (8.5-10.1); Chloride 112 mmol/L (98-107); Creatinine, Serum 0.95 mg/dL (0.55-1.02); EST Glomerular Filtration Rate 70 mL/min (>60); Est Glom Filt Rate - Afr Amer 85 mL/min (>60); Estimated Creatinine Clearance 85.56 ml/min; Globulin 3.7 g/dL (2.2-4.2); Glucose 115 mg/dL (74-106); Potassium 3.6 mmol/L (3.5-5.1); Protein, Total 7.4 g/dL (6.4-8.2); Sodium Level 142 mmol/L (136-145)
[2020-01-23] MEDS: LORazepam 2 MG/ML Syringe 1 MG IV (21:08)
[2020-01-23 21:15] LABS: Red Blood Cells-Urine > 100 SEEN /hpf (0-5); Squamous Epithelial Cells - UA 10-25 SEEN /hpf (5-10); White Blood Cells 0-5 SEEN /hpf (0-5)
[2020-01-23 21:16] LABS: Bacteria 1+ /hpf (None Seen); Trichomonas 0-5 SEEN /hpf (None Seen)
[2020-01-23 21:51] VITALS: BP 100/66; PULSE 74; RESP 15; O2SAT 97
--- NOTE | 2020-01-23 22:42 | ED.VISSUMM ---
- ER Visit Summary Date of Service: 01/23/20 Chief Complaint: I do not feel okay History of Present Illness: The patient is a [address] Mcnair. She is a poor informant. She reports that she has not felt quite right since lunch. States that her mouth feels dry. She reports that she has crampy diffuse abdominal pain, but I am on my. When asked the severity of this she reports not that bad. She reports that she has paresthesias in her left leg that began today. When asked if it is numb she denies this. She reports it just does not feel right. Physical Examination: Vitals: Stable. Afebrile. General: Well-nourished and well-developed. Head: Normocephalic atraumatic. Neck: Supple, no lymphadenopathy. No JVD. Nontender. Cardiovascular: Regular rate and rhythm. No murmurs. Respiratory: No respiratory distress. Clear to auscultation bilaterally. Abdominal: Soft, nontender, nondistended, normal bowel sounds. No guarding, rebound, or peritoneal signs. Back: Nontender. Extremities: Nontender, no edema. Skin: Normal color, no rash. Neurologic: Alert and oriented ?3. Cranial nerves II through XII are intact. Normal strength and sensation. Psych: Normal affect. Test Results: EKG is sinus at 85. Is unchanged from prior. CBC is normal. Chem-7 shows a chloride of 112, glucose 115, calcium of 8.4. LFTs are normal. UA shows no evidence of infection. She does have greater than 100 red blood cells, but she is on her menses. There are 10-25 epithelial cells. test is negative. Clinical Impression(s) from Imaging Studies Brain CT 01/23/20 20:09 IMPRESSION: Stable old left MCA territory infarct with encephalomalacia. No acute intracranial abnormality. Stable left maxillary sinusitis. Electronically Signed: Mohsen Martin, at 21:51 EDT Tel , Service support , Emergency Department Course and Treatment: Patient's NIH scale is 0. She is not a TPA candidate. I did review her presentation last month and the fact that she had a stroke last month that appear to be embolic in nature. I saw her follow-up with heme-onc and she is not hypercoagulable. I did see that she is supposed to be getting a KEEGAN EEG and has not gotten this yet. She reports that she followed up with the stroke neurologist in [place] last week. Treatment Plan: Patient reports that she believes that this was due to her anxiety. She does not want to stay in the hospital. She does understand that without an MRI I cannot rule out that she did not have another stroke. She understands this and will return with any worsening symptoms. Follow-up with her primary care physician 1 to 2 days for another exam. Disposition: To home in improved and stable condition. Impression: 1. Anxiety. 2. Left leg paresthesias. 3. History of stroke. This note was generated with [employer] dictation software. It may contain incorrect words, spelling, and punctuation that were not noted in review of the chart prior to signing ED Disposition - Plan for ED Patient: Disposition: Home or Assisted Living Instructions: ED Paraesthesias Referrals: Jovany Mcnair DO [Primary Care Provider] - 1 Day for another exam
== END 2020-01-23 22:56 | disposition home or self-care (01) ==
LOC: ED 20:58
PROVIDERS: Emergency Provider Emergency Medicine; PCP Family Medicine
DX: F41.9 Anxiety disorder, unspecified (principal); R20.2 Paresthesia of skin; Z72.0 Tobacco use; Z79.82 Long term (current) use of aspirin; Z79.02 Long term (current) use of antithrombotics/antiplatelets; Z86.73 Personal history of transient ischemic attack (TIA), and cerebral infarction without residual deficits
CPT/HCPCS: 70450; 80053; 81001; 84703; 85025; 93005; 96361; 96374; 99284; J7040; A4216

== ENCOUNTER 2020-01-31 10:30 | Outpatient (RCR) | payer MEDICAID, SELFPAY ==
[2019-12-27 13:38] VITALS: BMI 36.2
--- NOTE | 2020-01-03 13:54 | HP.SP.AD ---
History - History Date of Eval: 01/03/20 Medical Diagnosis (from RX): Dysphagia Date of Onset of Diagnosis: 12/26/19 Previous speech therapy: Yes Results: Good results for aphasia therapy. Other Relevant Medical History/Diagnoses/Surgery: Two CVA, one three years ago and recent one, bipolar discorder, hx PE, tobacco abus Medications related to this diagnosis: Acetaminophen (Tylenol) 650 mg PO Q6H PRN PRN. Al Hydroxide/Mg Hydroxide (Mylanta Ii) 30 ml PO Q6H PRN PRN. Aspirin (Aspirin, Baby) 81 mg PO DAILY@0800 JAMAL. Atorvastatin Calcium (Lipitor) 80 mg PO QHS JAMAL. Clopidogrel Bisulfate (Plavix) 75 mg PO DAILY JAMAL. Heparin Sodium (Porcine) (Heparin Na) 5,000 unit SC Q8 JAMAL. Sodium Chloride () 250 mls @ 15 mls/hr IV .[id number] PRN. Sodium Chloride () 250 mls @ 15 mls/hr IV .[id number] PRN. Labetalol HCl (Trandate) 10 - 20 mg IV Q10M PRN PRN. Nicotine (Nicoderm Cq (Pbkc)) 21 mg TRANSDERM. DAILY JAMAL. Nicotine Polacrilex (Rugby Nicotine (Bkc)) 2 mg PO Q2H PRN PRN. Ondansetron HCl (Zofran) 4 mg IV Q8H PRN PRN. Sodium Chloride Smoking Status: Current every day smoker Hx Smoking: Yes Hx Tobacco Use: Yes Hx Smoking Exposure: Yes - Pain Is pain an issue with your current prescribed condition?: Yes - Personal Occupation: Not employed Right Hearing Abillity: Normal Left Hearing Abillity: Normal Visual Assistive Devices: None Patients Living Arrangements: With Family Patient Allergies - Allergies Allergies cefaclor [From Ceclor] Allergy (Verified 12/25/19 13:35) Anaphylaxis codeine Allergy (Verified 12/25/19 13:35) Anaphylaxis iodine Allergy (Verified 12/25/19 13:35) Anaphylaxis Penicillins Allergy (Verified 12/25/19 13:35) Anaphylaxis red dye Allergy (Verified 12/25/19 13:35) Hives Subjective Oral Motor - Comments Comments: Patient reported that she sounds deaf now. Objective Oral Motor - Oral Status Dentition: Missing Teeth, Decay Additional: All upper teeth removed and natural lower. - Labial Observation at Rest: WNL Closure: WNL Pucker: WNL Retraction: WNL Involuntary Movement noted: No - Lingual Protrusion: WNL Retraction: WNL Lateralization: WNL - Lingual Comments Comments: Noted tongue was completely white. Patient reported that she is not able to brush her teeth. She is seeing ENT this week and she was given the recommendation to discuss pain with him. - Jaw Impairment: WNL Opening: WNL Closing: WNL - Respiratory Status Respiratory Status: Room Air Subjective Dysphagia - Current Diet Solids Current Diet: Pureed - Current Diet Liquids Current Liquids: [place] Thick Block free water Protocol: No Objective Dysphagia - Administered by Administered by: Self - Thin Liquids Comments: Patient refused thin liquids this date and stated she is afraid to try it. - [place] Thickened Liquids Administered via: Cup Laryngeal Elevation: WFL Oral Holding: No Gagging: No Patient Report: Patient reported no difficulty with nectar thickened. Comments: No couhging or throat clearing noted. No altered vocal quality. - Pureed Laryngeal Elevation: WFL Oral Holding: No Gagging: No Stasis: None Patient Report: Patient reported no difficulty. - Regular Impaired Mastication: Patient was given two trials of regular. First trial was a harder cookie ( Idalmis doon). Observed that she was not chewing much. When questioned the patient reported that it hurt. She then gagged and spit it out. She reported that she has too much saliva and she then gags. Second trial was fruit snack and she was able to slowly chew it, again reporting pain. Mastication was appropriate with softer food. Laryngeal Elevation: WFL Oral Holding: Yes - Due to pain. Gagging: Yes - Results Swallowing Within Normal Limits: No Swallowing Diagnosis: Dysphagia Unspecified, Oropharyngeal Phase Dysphagia Severity: Moderate Dysphagia Assessment - Swallowing Impairment Contributing Factors to Swallowing Impairment: Reduced Oral Strength/Coordination/Sensation, Mastication Inefficiency, Impaired Oral-Pharyngeal Transport - Impact Impact on Safety & Functioning: Risk for Inadequate Nutrition/Hydration - Recommendations Modified Barium Swallow/Cookie Swallow Recommended: Yes Swallowing Treatment: Yes - Diet Texture Recommendations Solids Other: Mechanical Soft Liquids: [place] Thick Block free water Protocol: No Other: Patient was provided [facility] information regarding mechanical soft foods. Recommended softer foods like baked potato or pasta would be good to start. - Safety Saftey Precautions/Swallowing Recommendations (Check all that Apply): Small Sips & Bites when Eating Plan - Plan Plan: Speech therapy is recommended for moderate oral dysphagia and possible pharyngeal dysphagia. Patient is seeing ENT soon and will determine if there is a reason for oral pain. Therapy is necessary for diet upgrade to least restrictive means of nutrition. - Recommendations MBS: Yes Treatment Warranted: Yes - Frequency Frequency: 1x/Week Duration: 6 Weeks Visits in this POC: 6 - Prognosis Prognosis: Good - Goals that are Established: Determination:: Goals will be added/modified as deemed necessary and appropriate. Therapy will be discontinued when results of re-evaluation indicate therapy is no longer needed or lack of progress has been documented. - Goal #1-5 Goal #1: The Patient will tolerate the least restrictive means of nutrition to facilitate adequate hydration/nutrition with optimum safety and efficiency of swallowing function during P.O. intake without overt signs and symptoms of aspiration. Goal #2: The Patient will demonstrate and utilize recommended velopharyngeal and oropharyngeal strengthening exercises to facilitate improved velopharyngeal and oropharyngeal strength and coordination with minimal cueing and prompting provide by the clinician, across 3 to 3 sessions. Education - Patient Instruction Patient Education: Diagnosis, Treatment Plan, Goals, Safety Precautions, Diet Level Person Taught: Patient, Family Teaching Method: Discussion, Handout Response to teaching: Verbalize understanding
--- NOTE | 2020-06-07 09:56 | HP.SP.DC ---
ST Discharge Summary - Discharged: Discharge: Jacki Ya is discharged from speech therapy at [facility] as of 06/07/20. She attended three visits after her initial evaluation on 01/03/20 for dysphagia. She had a fear of eating in which she stated that it is all in my head. During her last session she reported she has eaten pizza and hamburger without the bun. She only ate yogurt the day before due to not feeling well. She reported that she gets tired when she eats. When asked about panic she states that its in her head and it can before and after she eats. She reported feeling sick after eating. Her physician has given her a 5 mg dose of ativan that was filled yesterday but she has not taken it yet. She will only eat when her two sisters or mother is present. Counseling was recommended as she was able to eat regular foods. She did not attend her last two session and did not schedule any more visits. A copy of this discharge summary will be sent to her referring physician. [ End ]
== END 2020-01-31 19:00 | disposition home or self-care (01) ==
LOC: SP 10:30
PROVIDERS: PCP Family Medicine; Referring Provider Family Medicine; Visit Provider Family Medicine
DX: Z86.73 Personal history of transient ischemic attack (TIA), and cerebral infarction without residual deficits (principal)
CPT/HCPCS: 92526; 92610

== ENCOUNTER → 2023-05-06 | Outpatient (CLI) | payer MEDICAID, SELFPAY ==
[2023-05-06 15:29] LABS: Absolute Lymphocyte Count 1.99 X10^3/uL (0.83-4.51); Absolute Neutrophil Count 4.8 X10^3/uL (2.0-7.7); Basophil# 0.07 X10^3/uL; Basophil% 0.9 % (0-1); Eosinophil# 0.17 X10^3/uL; Eosinophils% 2.3 % (0-5); Hematocrit 38.7 % (37-47); Hemoglobin 12.5 g/dL (12.0-15.0); Lymphocyte # 1.99 X10^3/ul (0.83-4.51); Lymphocyte % 26.4 % (19-41); Mean Corp Hgb Conc 32.3 g/dL (32-36); Mean Corpuscular Hgb 31.8 pg (27.0-32.0); Mean Corpuscular Volume 98.5 fL (81-99); Mean Platelet Vol. 9.3 fl (6.2-12.0); Monocyte% 6.6 % (0-10); NRBC Flagged by Analyzer 0 % (0-5); Neutrophil % 63.5 % (47-70); Platelet Count 248 K/mm3 (150-450); RBC Distribution Width CV 13.7 % (11.6-14.6); RBC Distribution Width SD 49.9 fl (35.1-43.9); Red Blood Count 3.93 M/mm3 (4.2-5.4); White Blood Count 7.6 K/mm3 (4.4-11.0)
[2023-05-06 15:51] LABS: ALB/GLOB Ratio 0.9 RATIO (0.9-2.4); AST(SGOT) 19 U/L (15-37); Alanine Aminotransfer ALT/SGPT 24 U/L (13-56); Albumin, Serum 3.6 g/dL (3.2-5.0); Alkaline Phosphatase 73 U/L (45-117); Anion Gap 5 (5-15); BUN 16 mg/dL (7-18); BUN/Creat Ratio 15.7 RATIO (10-20); Calcium,Total 8.7 mg/dL (8.5-10.1); Chloride 106 mmol/L (98-107); Cholesterol 93 mg/dL (200); Creatinine, Serum 1.02 mg/dL (0.55-1.02); EST Glomerular Filtration Rate 64 mL/min (>60); Est Glom Filt Rate - Afr Amer 77 mL/min (>60); Glucose 85 mg/dL (74-106); High Density Lipoprotein 42 mg/dL; Protein, Total 7.6 g/dL (6.4-8.2); Sodium Level 136 mmol/L (136-145); Triglycerides 80 mg/dL; Very Low Density Lipoprotein 16 mg/dL (5-40)
== END | disposition home or self-care (01) ==
LOC: BFHLAB 11:24
PROVIDERS: PCP Family Medicine; Referring Provider Family Medicine; Visit Provider Family Medicine
DX: Z00.00 Encounter for general adult medical examination without abnormal findings (principal)
CPT/HCPCS: 36415; 80053; 80061; 85025